=== PATIENT | female | born 1950 | race Two or more races ===

== ENCOUNTER 2017-09-24 13:12 | Outpatient (CLI) | payer OTHER ==
[~2017-09-24 13:12] MED LIST: CIPRO500 MG PO; LEVSIN/SL0.125 MG SL; NORVASC2.5 M1; NORVASC2.5 MG PO; ZOCOR20 MG PO
== END 2017-09-24 13:26 | disposition home or self-care (01) ==
LOC: LAB 13:12
DX: I11.9 Hypertensive heart disease without heart failure (principal); E78.2 Mixed hyperlipidemia; Z12.11 Encounter for screening for malignant neoplasm of colon

== ENCOUNTER → 2017-09-25 12:19 | Outpatient (CLI) | payer OTHER | END | disposition home or self-care (01) | LOC: LAB 12:19 | DX: I11.9 Hypertensive heart disease without heart failure (principal); E78.2 Mixed hyperlipidemia; Z11.1 Encounter for screening for respiratory tuberculosis ==

== ENCOUNTER 2017-10-19 12:14 | Outpatient (CLI) | payer OTHER | END 2017-10-19 14:34 | disposition home or self-care (01) | LOC: TOM 12:14 | DX: H81.393 Other peripheral vertigo, bilateral (principal) ==

== ENCOUNTER 2017-10-20 07:07 | Outpatient (CLI) | payer OTHER | END 2017-10-20 07:12 | disposition home or self-care (01) | LOC: LAB 07:07 | DX: E16.1 Other hypoglycemia (principal) ==

== ENCOUNTER 2017-12-09 10:45 | Outpatient (CLI) | payer OTHER | END 2017-12-09 10:50 | disposition home or self-care (01) | LOC: MAMO-SONO 10:45 | DX: Z12.31 Encounter for screening mammogram for malignant neoplasm of breast (principal); Z87.898 Personal history of other specified conditions ==

== ENCOUNTER 2017-12-09 10:56 | Outpatient (CLI) | payer OTHER | END 2017-12-09 10:58 | disposition home or self-care (01) | LOC: RAD 10:56 | DX: J30.89 Other allergic rhinitis (principal); E78.2 Mixed hyperlipidemia; K44.9 Diaphragmatic hernia without obstruction or gangrene; I10 Essential (primary) hypertension; K21.9 Gastro-esophageal reflux disease without esophagitis; J45.20 Mild intermittent asthma, uncomplicated ==

== ENCOUNTER → 2017-12-09 14:02 | Outpatient (CLI) | payer OTHER | END | disposition home or self-care (01) | LOC: LAB 14:02 | DX: E78.00 Pure hypercholesterolemia, unspecified (principal); K44.9 Diaphragmatic hernia without obstruction or gangrene; K21.9 Gastro-esophageal reflux disease without esophagitis; I10 Essential (primary) hypertension; J45.40 Moderate persistent asthma, uncomplicated; J30.89 Other allergic rhinitis ==

== ENCOUNTER 2017-12-11 11:09 | Outpatient (CLI) | payer OTHER | END 2017-12-11 11:16 | disposition home or self-care (01) | LOC: LAB 11:09 | DX: J30.9 Allergic rhinitis, unspecified (principal); E78.2 Mixed hyperlipidemia; K44.9 Diaphragmatic hernia without obstruction or gangrene; I10 Essential (primary) hypertension; K21.9 Gastro-esophageal reflux disease without esophagitis; J45.40 Moderate persistent asthma, uncomplicated; N39.0 Urinary tract infection, site not specified ==

== ENCOUNTER 2018-01-07 11:30 | Outpatient (CLI) | payer OTHER | END 2018-01-07 11:47 | disposition home or self-care (01) | LOC: LAB 11:30 | DX: R20.0 Anesthesia of skin (principal) ==

== ENCOUNTER 2018-01-07 12:48 | Outpatient (CLI) | payer OTHER | END 2018-01-07 12:55 | disposition home or self-care (01) | LOC: RAD 12:48 | DX: R20.2 Paresthesia of skin (principal); M54.5 Low back pain ==

== ENCOUNTER 2018-02-20 07:42 | Outpatient (CLI) | payer OTHER | END 2018-02-20 11:43 | disposition home or self-care (01) | LOC: LAB 07:42 | DX: D64.89 Other specified anemias (principal); E03.8 Other specified hypothyroidism; I10 Essential (primary) hypertension; R73.09 Other abnormal glucose; E78.4 Other hyperlipidemia ==

== ENCOUNTER 2018-02-23 08:45 | Outpatient (CLI) | payer OTHER | END 2018-02-23 08:52 | disposition home or self-care (01) | LOC: SONOGRAMA 08:45 | DX: Z13.228 Encounter for screening for other metabolic disorders (principal); E04.1 Nontoxic single thyroid nodule ==

== ENCOUNTER → 2018-02-23 | Outpatient (CLI) | payer OTHER | END | disposition home or self-care (01) | LOC: LAB 07:36 | DX: Z13.228 Encounter for screening for other metabolic disorders (principal); E55.9 Vitamin D deficiency, unspecified ==

== ENCOUNTER 2018-03-19 08:15 | Outpatient (CLI) | payer OTHER | END 2018-03-19 08:30 | disposition home or self-care (01) | LOC: LAB 08:15 | DX: R73.01 Impaired fasting glucose (principal) ==

== ENCOUNTER 2018-03-22 08:45 | Outpatient (CLI) | payer OTHER | END 2018-03-22 09:02 | disposition home or self-care (01) | LOC: NUCLEAR 08:45 | DX: I73.9 Peripheral vascular disease, unspecified (principal) ==

== ENCOUNTER → 2018-04-13 06:51 | Outpatient (CLI) | payer OTHER | END | disposition home or self-care (01) | LOC: LAB 06:51 | DX: E55.9 Vitamin D deficiency, unspecified (principal); D51.8 Other vitamin B12 deficiency anemias; E11.9 Type 2 diabetes mellitus without complications; E03.8 Other specified hypothyroidism; E53.8 Deficiency of other specified B group vitamins ==

== ENCOUNTER 2018-04-19 08:21 | Outpatient (CLI) | payer OTHER | END 2018-04-19 08:25 | disposition home or self-care (01) | LOC: MRI 08:21 | DX: R25.1 Tremor, unspecified (principal) | CPT/HCPCS: 70551 ==

== ENCOUNTER 2018-06-21 09:18 | Outpatient (CLI) | payer OTHER | END 2018-06-21 09:28 | disposition home or self-care (01) | LOC: LAB 09:18 | DX: E78.4 Other hyperlipidemia (principal); E03.8 Other specified hypothyroidism; I10 Essential (primary) hypertension ==

== ENCOUNTER 2018-07-01 08:40 | Outpatient (CLI) | payer OTHER | END 2018-07-01 08:43 | disposition home or self-care (01) | LOC: LAB 08:40 | DX: R30.0 Dysuria (principal) ==

== ENCOUNTER 2018-07-13 10:02 | Outpatient (CLI) | payer OTHER | END 2018-07-13 10:10 | disposition home or self-care (01) | LOC: SONOGRAMA 10:02 | DX: R10.2 Pelvic and perineal pain (principal) ==

== ENCOUNTER 2018-09-28 13:15 | Outpatient (CLI) | payer OTHER | END 2018-09-28 13:24 | disposition home or self-care (01) | LOC: RAD 13:15 | DX: J45.40 Moderate persistent asthma, uncomplicated (principal) ==

== ENCOUNTER 2018-10-30 07:58 | Outpatient (CLI) | payer OTHER | END 2018-10-30 07:59 | disposition home or self-care (01) | LOC: SONOGRAMA 07:58 → MAMO-SONO 08:45 | DX: R10.13 Epigastric pain (principal); N23 Unspecified renal colic ==

== ENCOUNTER 2018-11-16 10:48 | Outpatient (CLI) | payer OTHER | END 2018-11-16 13:05 | disposition HB | LOC: LAB 10:48 | DX: E03.8 Other specified hypothyroidism (principal); I10 Essential (primary) hypertension; E78.89 Other lipoprotein metabolism disorders ==

== ENCOUNTER 2018-12-10 08:45 | Outpatient (CLI) | payer OTHER | END 2018-12-10 09:22 | disposition home or self-care (01) | LOC: MAMO-SONO 08:45 | DX: Z12.31 Encounter for screening mammogram for malignant neoplasm of breast (principal); Z87.898 Personal history of other specified conditions; N64.89 Other specified disorders of breast ==

== ENCOUNTER 2018-12-23 13:47 | Outpatient (CLI) | payer OTHER | END 2018-12-23 13:57 | disposition home or self-care (01) | LOC: NUCLEAR 13:47 | DX: M81.0 Age-related osteoporosis without current pathological fracture (principal) ==

== ENCOUNTER 2018-12-23 14:35 | Outpatient (CLI) | payer OTHER | END 2018-12-23 14:46 | disposition home or self-care (01) | LOC: RAD 14:35 | DX: M54.2 Cervicalgia (principal); M54.5 Low back pain ==

== ENCOUNTER 2018-12-28 15:09 | Outpatient (CLI) | payer OTHER | END 2018-12-28 16:27 | disposition home or self-care (01) | LOC: LAB 15:09 | DX: R10.33 Periumbilical pain (principal); Z51.81 Encounter for therapeutic drug level monitoring ==

== ENCOUNTER 2019-01-05 07:21 | Outpatient (CLI) | payer OTHER | END 2019-01-05 07:27 | disposition home or self-care (01) | LOC: TOM 07:21 | DX: R10.31 Right lower quadrant pain (principal); R10.32 Left lower quadrant pain; R10.33 Periumbilical pain | CPT/HCPCS: 74178; Q9965 ==

== ENCOUNTER → 2019-06-06 | Outpatient (CLI) | payer OTHER | END | disposition home or self-care (01) | LOC: RAD 11:10 | DX: M54.5 Low back pain (principal) ==

== ENCOUNTER 2019-08-03 11:55 | Outpatient (CLI) | payer OTHER | END 2019-08-03 11:58 | disposition home or self-care (01) | LOC: LAB 11:55 | DX: E03.8 Other specified hypothyroidism (principal) ==

== ENCOUNTER 2019-08-11 08:05 | Outpatient (CLI) | payer OTHER | END 2019-08-11 09:00 | disposition home or self-care (01) | LOC: NUCLEAR 08:05 | DX: E04.1 Nontoxic single thyroid nodule (principal) | CPT/HCPCS: 78013; A9512 ==

== ENCOUNTER 2019-08-24 08:09 | Outpatient (CLI) | payer OTHER | END 2019-08-24 08:40 | disposition home or self-care (01) | LOC: LAB 08:09 | DX: D51.0 Vitamin B12 deficiency anemia due to intrinsic factor deficiency (principal); E78.49 Other hyperlipidemia; E08.22 Diabetes mellitus due to underlying condition with diabetic chronic kidney disease; N20.1 Calculus of ureter; N20.0 Calculus of kidney; I10 Essential (primary) hypertension; N28.1 Cyst of kidney, acquired ==

== ENCOUNTER 2019-08-29 09:18 | Outpatient (CLI) | payer OTHER | END 2019-08-29 12:41 | disposition home or self-care (01) | LOC: TOM 09:18 | DX: N20.1 Calculus of ureter (principal); N20.0 Calculus of kidney; N28.1 Cyst of kidney, acquired ==

== ENCOUNTER 2019-11-16 09:10 | Outpatient (CLI) | payer OTHER | END 2019-11-16 09:16 | disposition home or self-care (01) | LOC: SONOGRAMA 09:10 → MAMO-SONO 10:15 | DX: E04.1 Nontoxic single thyroid nodule (principal) ==

== ENCOUNTER 2019-11-17 06:52 | Outpatient (CLI) | payer OTHER | END 2019-11-17 06:57 | disposition home or self-care (01) | LOC: LAB 06:52 | DX: E11.65 Type 2 diabetes mellitus with hyperglycemia (principal); I10 Essential (primary) hypertension; E03.8 Other specified hypothyroidism; D50.8 Other iron deficiency anemias ==

== ENCOUNTER 2020-01-09 08:47 | Outpatient (CLI) | payer OTHER | END 2020-01-09 09:45 | disposition home or self-care (01) | LOC: RAD 08:47 | DX: M54.5 Low back pain (principal); M54.10 Radiculopathy, site unspecified; M54.2 Cervicalgia; R05 Cough; R53.81 Other malaise; I11.9 Hypertensive heart disease without heart failure; Q05.7 Lumbar spina bifida without hydrocephalus; M51.36 Other intervertebral disc degeneration, lumbar region; E78.01 Familial hypercholesterolemia; E55.9 Vitamin D deficiency, unspecified; J45.20 Mild intermittent asthma, uncomplicated; M48.56XS Collapsed vertebra, not elsewhere classified, lumbar region, sequela of fracture; K58.0 Irritable bowel syndrome with diarrhea; N60.21 Fibroadenosis of right breast; Z12.31 Encounter for screening mammogram for malignant neoplasm of breast | CPT/HCPCS: 71046; 72141; 72158; 76641; 77067; A9575; 72148 ==

== ENCOUNTER 2020-01-18 09:28 | Outpatient (CLI) | payer OTHER | END 2020-01-18 09:36 | disposition home or self-care (01) | LOC: LAB 09:28 | DX: C77.2 Secondary and unspecified malignant neoplasm of intra-abdominal lymph nodes (principal); C26.9 Malignant neoplasm of ill-defined sites within the digestive system; R10.817 Generalized abdominal tenderness; C56.9 Malignant neoplasm of unspecified ovary; E55.0 Rickets, active ==

== ENCOUNTER → 2020-02-22 08:00 | Outpatient (CLI) | payer OTHER | END | disposition home or self-care (01) | LOC: LAB 02-21 10:14 | PROVIDERS: ATTEND Internal Medicine Cardiovascular Disease | DX: E78.89 Other lipoprotein metabolism disorders (principal); I10 Essential (primary) hypertension; D64.89 Other specified anemias; E03.8 Other specified hypothyroidism ==

== ENCOUNTER 2020-04-10 09:27 | Outpatient (CLI) | payer OTHER | END 2020-04-10 09:35 | disposition home or self-care (01) | LOC: LAB 09:27 | PROVIDERS: ATTEND Psychiatry & Neurology Pain Medicine | DX: D68.8 Other specified coagulation defects (principal); H81.399 Other peripheral vertigo, unspecified ear; Z01.812 Encounter for preprocedural laboratory examination; Z13.6 Encounter for screening for cardiovascular disorders; E78.00 Pure hypercholesterolemia, unspecified ==

== ENCOUNTER 2020-06-08 11:35 | Outpatient (CLI) | payer OTHER | END 2020-06-08 11:37 | disposition home or self-care (01) | LOC: RAD 11:35 | PROVIDERS: ATTEND Internal Medicine Pulmonary Disease | DX: J45.40 Moderate persistent asthma, uncomplicated (principal) ==

== ENCOUNTER → 2020-08-07 08:22 | Outpatient (CLI) | payer OTHER | END | disposition home or self-care (01) | LOC: LAB 08:22 | PROVIDERS: ATTEND Internal Medicine Cardiovascular Disease | DX: E03.8 Other specified hypothyroidism (principal); E78.49 Other hyperlipidemia; I10 Essential (primary) hypertension; D64.89 Other specified anemias ==

== ENCOUNTER → 2020-08-15 | Outpatient (CLI) | payer OTHER | END | disposition home or self-care (01) | LOC: MRI 09:20 | DX: M48.07 Spinal stenosis, lumbosacral region (principal); M54.5 Low back pain; M51.36 Other intervertebral disc degeneration, lumbar region; G95.89 Other specified diseases of spinal cord | CPT/HCPCS: 72141; 72148 ==

== ENCOUNTER 2020-11-20 09:58 | Outpatient (CLI) | payer OTHER | END 2020-11-20 10:12 | disposition home or self-care (01) | LOC: LAB 09:58 | PROVIDERS: ATTEND Internal Medicine | DX: I11.9 Hypertensive heart disease without heart failure (principal); E03.8 Other specified hypothyroidism; Q05.7 Lumbar spina bifida without hydrocephalus; E78.01 Familial hypercholesterolemia; G60.8 Other hereditary and idiopathic neuropathies; E55.9 Vitamin D deficiency, unspecified; G56.03 Carpal tunnel syndrome, bilateral upper limbs; J45.20 Mild intermittent asthma, uncomplicated; M48.56XS Collapsed vertebra, not elsewhere classified, lumbar region, sequela of fracture; K58.0 Irritable bowel syndrome with diarrhea; N60.21 Fibroadenosis of right breast ==

== ENCOUNTER 2020-11-27 13:05 | Outpatient (CLI) | payer OTHER | END 2020-11-27 13:15 | disposition home or self-care (01) | LOC: SONOGRAMA 13:05 → MAMO-SONO 13:15 | DX: E04.8 Other specified nontoxic goiter (principal); I11.9 Hypertensive heart disease without heart failure; E03.8 Other specified hypothyroidism; Q05.7 Lumbar spina bifida without hydrocephalus; M51.36 Other intervertebral disc degeneration, lumbar region; E78.01 Familial hypercholesterolemia; G60.8 Other hereditary and idiopathic neuropathies; E55.9 Vitamin D deficiency, unspecified; G56.03 Carpal tunnel syndrome, bilateral upper limbs; J45.20 Mild intermittent asthma, uncomplicated; M48.56XS Collapsed vertebra, not elsewhere classified, lumbar region, sequela of fracture; K58.0 Irritable bowel syndrome with diarrhea; N60.21 Fibroadenosis of right breast ==

== ENCOUNTER 2020-12-24 08:13 | Outpatient (CLI) | payer OTHER | END 2020-12-24 08:16 | disposition home or self-care (01) | LOC: LAB 08:13 | DX: E78.5 Hyperlipidemia, unspecified (principal); E03.9 Hypothyroidism, unspecified; I11.9 Hypertensive heart disease without heart failure ==

== ENCOUNTER 2021-06-11 09:58 | Outpatient (CLI) | payer OTHER | END 2021-06-11 10:07 | disposition home or self-care (01) | LOC: RAD 09:58 | DX: M25.551 Pain in right hip (principal); M25.552 Pain in left hip; M41.87 Other forms of scoliosis, lumbosacral region; M21.70 Unequal limb length (acquired), unspecified site ==

== ENCOUNTER → 2021-07-10 12:50 | Outpatient (CLI) | payer OTHER | END | disposition home or self-care (01) | LOC: NUCLEAR 12:50 | PROVIDERS: ATTEND Obstetrics & Gynecology | DX: M81.0 Age-related osteoporosis without current pathological fracture (principal) ==

== ENCOUNTER → 2021-07-10 | Outpatient (CLI) | payer OTHER | END | disposition home or self-care (01) | LOC: MAMO-SONO 11:47 | DX: N60.32 Fibrosclerosis of left breast (principal); N64.89 Other specified disorders of breast; Z12.31 Encounter for screening mammogram for malignant neoplasm of breast ==

== ENCOUNTER 2021-10-18 10:54 | Outpatient (CLI) | payer OTHER | END 2021-10-18 10:55 | disposition home or self-care (01) | LOC: LAB 10:54 | PROVIDERS: ATTEND Internal Medicine Cardiovascular Disease | DX: D64.89 Other specified anemias (principal); E78.89 Other lipoprotein metabolism disorders; E03.8 Other specified hypothyroidism ==

== ENCOUNTER 2021-11-07 12:02 | Outpatient (CLI) | payer OTHER | END 2021-11-07 12:03 | disposition home or self-care (01) | LOC: LAB 12:02 | PROVIDERS: ATTEND Radiology Diagnostic Radiology | DX: R41.3 Other amnesia (principal) ==

== ENCOUNTER → 2021-11-20 08:43 | Outpatient (CLI) | payer OTHER | END | disposition home or self-care (01) | LOC: LAB 08:43 | PROVIDERS: ATTEND Psychiatry & Neurology Pain Medicine | DX: R41.3 Other amnesia (principal); E53.8 Deficiency of other specified B group vitamins; E55.9 Vitamin D deficiency, unspecified; A53.9 Syphilis, unspecified; E07.9 Disorder of thyroid, unspecified ==

== ENCOUNTER 2022-02-12 08:56 | Outpatient (CLI) | payer OTHER | END 2022-02-12 09:08 | disposition home or self-care (01) | LOC: RAD 08:56 | PROVIDERS: ATTEND Psychiatry & Neurology Pain Medicine | DX: J30.9 Allergic rhinitis, unspecified (principal); I10 Essential (primary) hypertension; K21.9 Gastro-esophageal reflux disease without esophagitis; J42 Unspecified chronic bronchitis; I73.9 Peripheral vascular disease, unspecified; J45.40 Moderate persistent asthma, uncomplicated; K44.9 Diaphragmatic hernia without obstruction or gangrene; G31.84 Mild cognitive impairment of uncertain or unknown etiology; R42 Dizziness and giddiness; R25.1 Tremor, unspecified | CPT/HCPCS: 70553; 71046; Q9965 ==

== ENCOUNTER 2022-02-12 09:34 | Outpatient (CLI) | payer OTHER | END 2022-02-12 09:38 | disposition home or self-care (01) | LOC: LAB 09:34 | PROVIDERS: ATTEND Radiology Diagnostic Radiology | DX: R41.3 Other amnesia (principal) ==

== ENCOUNTER 2022-04-21 09:15 | Outpatient (CLI) | payer OTHER | END 2022-04-21 09:16 | disposition home or self-care (01) | LOC: LAB 09:15 | PROVIDERS: ATTEND Obstetrics & Gynecology | DX: D50.0 Iron deficiency anemia secondary to blood loss (chronic) (principal); N39.0 Urinary tract infection, site not specified; N76.0 Acute vaginitis; E11.69 Type 2 diabetes mellitus with other specified complication; E55.9 Vitamin D deficiency, unspecified; D64.9 Anemia, unspecified; E78.5 Hyperlipidemia, unspecified; E03.9 Hypothyroidism, unspecified; I10 Essential (primary) hypertension ==

== ENCOUNTER 2022-08-18 09:15 | Outpatient (CLI) | payer OTHER | END 2022-08-18 15:50 | disposition home or self-care (01) | LOC: LAB 09:15 | PROVIDERS: ATTEND Obstetrics & Gynecology | DX: Z01.419 Encounter for gynecological examination (general) (routine) without abnormal findings (principal); E78.5 Hyperlipidemia, unspecified; E55.9 Vitamin D deficiency, unspecified; E78.2 Mixed hyperlipidemia; D64.9 Anemia, unspecified; E03.9 Hypothyroidism, unspecified; E78.00 Pure hypercholesterolemia, unspecified; N39.0 Urinary tract infection, site not specified ==

== ENCOUNTER 2022-08-25 14:32 | Outpatient (CLI) | payer OTHER | END 2022-08-25 14:37 | disposition home or self-care (01) | LOC: EDBD 14:32 → RAD 14:32 | PROVIDERS: ATTEND Internal Medicine | DX: M99.03 Segmental and somatic dysfunction of lumbar region (principal); M54.50 Low back pain, unspecified ==

== ENCOUNTER 2022-12-05 09:36 | Outpatient (CLI) | payer OTHER | END 2022-12-05 09:57 | disposition home or self-care (01) | LOC: LAB 09:36 | DX: I11.9 Hypertensive heart disease without heart failure (principal); E03.9 Hypothyroidism, unspecified; E78.1 Pure hyperglyceridemia; R73.01 Impaired fasting glucose ==

== ENCOUNTER → 2022-12-16 | Outpatient (CLI) | payer OTHER | END | disposition home or self-care (01) | LOC: RAD 13:25 | DX: M25.50 Pain in unspecified joint (principal); M94.0 Chondrocostal junction syndrome [Tietze]; R25.2 Cramp and spasm; R06.02 Shortness of breath ==

== ENCOUNTER 2023-03-03 11:31 | Outpatient (CLI) | payer OTHER | END 2023-03-03 11:35 | disposition home or self-care (01) | LOC: LAB 11:31 | PROVIDERS: ATTEND Internal Medicine | DX: Z12.11 Encounter for screening for malignant neoplasm of colon (principal); I11.9 Hypertensive heart disease without heart failure ==

== ENCOUNTER 2023-03-05 12:14 | Outpatient (CLI) | payer OTHER | END 2023-03-05 12:15 | disposition home or self-care (01) | LOC: LAB 12:14 | PROVIDERS: ATTEND Internal Medicine | DX: Z12.11 Encounter for screening for malignant neoplasm of colon (principal) ==

== ENCOUNTER 2023-03-20 12:45 | Outpatient (CLI) | payer OTHER | END 2023-03-20 12:46 | disposition home or self-care (01) | LOC: LAB 12:45 | PROVIDERS: ATTEND Internal Medicine | DX: J44.9 Chronic obstructive pulmonary disease, unspecified (principal); J45.40 Moderate persistent asthma, uncomplicated; M85.9 Disorder of bone density and structure, unspecified; G89.29 Other chronic pain; I73.9 Peripheral vascular disease, unspecified; E78.01 Familial hypercholesterolemia; K63.5 Polyp of colon ==

== ENCOUNTER 2023-05-08 11:05 | Outpatient (CLI) | payer OTHER | END 2023-05-08 11:11 | disposition home or self-care (01) | LOC: MRI 11:05 | PROVIDERS: ATTEND Chiropractor | DX: M99.01 Segmental and somatic dysfunction of cervical region (principal) | CPT/HCPCS: 72141 ==

== ENCOUNTER 2023-05-11 09:15 | Outpatient (CLI) | payer OTHER | END 2023-05-11 09:17 | disposition home or self-care (01) | LOC: LAB 09:15 | DX: N39.0 Urinary tract infection, site not specified (principal) ==

== ENCOUNTER → 2023-08-31 07:07 | Outpatient (CLI) | payer OTHER ==
[2023-08-31 10:04] LABS: T4 FREE 0.76 NG/ML (0.76-1.46); TSH 2.13 uIU/mL (0.358-3.74)
[2023-08-31 10:11] LABS: ob NEGATIVE (NEGATIVE)
== END | disposition home or self-care (01) ==
LOC: LAB 07:07
PROVIDERS: ATTEND Obstetrics & Gynecology
DX: E55.9 Vitamin D deficiency, unspecified (principal); E78.2 Mixed hyperlipidemia; E03.9 Hypothyroidism, unspecified; Z12.11 Encounter for screening for malignant neoplasm of colon

== ENCOUNTER 2024-04-07 09:18 | Outpatient (CLI) | payer OTHER | END 2024-04-07 09:26 | disposition home or self-care (01) | LOC: TOM 09:18 | PROVIDERS: ATTEND Internal Medicine | DX: N18.2 Chronic kidney disease, stage 2 (mild) (principal); R10.83 Colic; M54.41 Lumbago with sciatica, right side; M54.42 Lumbago with sciatica, left side ==

== ENCOUNTER 2024-04-07 11:12 | Outpatient (CLI) | payer OTHER ==
[2024-04-07 12:16] LABS: BILIRUBIN TOTAL 0.49 mg/dL (0.3-1.2); CREATININE SERUM 0.89 mg/dL (0.55-1.02); GFR 62.52; GLOBULINA 3.4 G/DL (2.4-3.5); POTASSIUM 4.69 mEq/L (3.5-5.1); TOTAL PROTEIN 7.4 gm/dL (6.4-8.2)
== END 2024-04-07 11:16 | disposition home or self-care (01) ==
LOC: LAB 11:12
PROVIDERS: ATTEND Internal Medicine
DX: N18.2 Chronic kidney disease, stage 2 (mild) (principal); I11.9 Hypertensive heart disease without heart failure

== ENCOUNTER 2024-07-12 08:34 | Outpatient (CLI) | payer OTHER ==
[2024-07-12 09:32] LABS: HEMATOCRIT 41.5 % (36.0-45.00); HEMOGLOBIN 13.9 g/dL (12.0-15.00); MEAN CORPUSCULAR HEMOGLOBIN 32.1 pg (27.00-32.0); MEAN CORPUSCULAR HGB CONC 33.4 g/dl (32.0-36.0); PLATELET COUNT 191 K/uL (150-450); RED BLOOD COUNT 4.33 M/uL (4.00-6.00); RED CELL DISTRIBUTION WIDTH 13.9 % (11.5-14.5)
[2024-07-12 09:41] LABS: PH,URINE 7.5 (5.0-8.0); URINE APPEARANCE Clear; URINE BILIRRUBIN Negative (NEGATIVE); URINE BLOOD Negative; URINE COLOR Yellow; URINE GLUCOSE Negative (NEGATIVE); URINE KETONE Negative (NEGATIVE); URINE LEUKOCYTE Trace; URINE NITRATE Negative; URINE PROTEIN Negative (NEGATIVE); URINE UROBILINOGEN 0.2 E.U./dl
[2024-07-12 09:42] LABS: URINE BACTERIA 18.8 uL (0.0-1933); URINE RBC 6.1 uL (0.0-20.8); URINE WBC 2.9 uL (0.0-23.2)
[2024-07-12 10:01] LABS: ALBUMIN 3.6 gm/dL (3.4-5.0); BILIRUBIN TOTAL 0.5 mg/dL (0.3-1.2); CALCIUM 8.9 mg/dL (8.5-10.1); CHOL HDL RATIO 2.6 (0-5.0); CREATININE SERUM 0.85 mg/dL (0.55-1.02); GFR 65.93; GLOBULINA 3.1 G/DL (2.4-3.5); POTASSIUM 4.26 mEq/L (3.5-5.1); T4 TOTAL 6.14 UG/DL (4.8-13.9); TOTAL PROTEIN 6.7 gm/dL (6.4-8.2); TSH 1.32 uIU/mL (0.358-3.74)
[2024-07-12 10:18] LABS: URINE EPITHELIAL CELLS 0.9 uL (0.0-38.8)
[2024-07-12 10:43] LABS: FOLIC ACID > 20.00 ng/ml (4.78-20)
[2024-07-15 13:06] LABS: a:g ratio 1.3 (0.7-1.7); alpha 1 g 0.2 g/dL (0.0-0.4); alpha 2 0.6 g/dL (0.4-1.0); globulin t 2.8 g/dL (2.2-3.9); m spike Not Observed g/dL (Not Observed); prot total 6.5 g/dL (6.0-8.5)
== END 2024-07-12 08:35 | disposition home or self-care (01) ==
LOC: LAB 08:34
PROVIDERS: ATTEND Psychiatry & Neurology Pain Medicine
DX: G62.9 Polyneuropathy, unspecified (principal); E53.8 Deficiency of other specified B group vitamins; E55.9 Vitamin D deficiency, unspecified; A53.9 Syphilis, unspecified; E07.9 Disorder of thyroid, unspecified; E78.9 Disorder of lipoprotein metabolism, unspecified; L93.0 Discoid lupus erythematosus; N89.8 Other specified noninflammatory disorders of vagina; R35.0 Frequency of micturition

== ENCOUNTER 2024-07-12 13:04 | Outpatient (CLI) | payer OTHER | END 2024-07-12 13:09 | disposition home or self-care (01) | LOC: MAMO-SONO 13:04 | PROVIDERS: ATTEND Internal Medicine | DX: N60.21 Fibroadenosis of right breast (principal); N60.22 Fibroadenosis of left breast; Z12.31 Encounter for screening mammogram for malignant neoplasm of breast ==

== ENCOUNTER → 2024-10-14 12:06 | Outpatient (CLI) | payer OTHER ==
[2024-10-14 13:12] LABS: HEMATOCRIT 42.2 % (36.0-45.00); HEMOGLOBIN 13.7 g/dL (12.0-15.00); MEAN CELL VOLUME 97.2 fL (80.00-100.00); MEAN CORPUSCULAR HEMOGLOBIN 31.6 pg (27.00-32.0); MEAN CORPUSCULAR HGB CONC 32.5 g/dl (32.0-36.0); PLATELET COUNT 214 K/uL (150-450); RED BLOOD COUNT 4.34 M/uL (4.00-6.00); RED CELL DISTRIBUTION WIDTH 14.9 % (11.5-14.5)
[2024-10-14 13:46] LABS: PH,URINE 7.5 (5.0-8.0); URINE APPEARANCE Clear; URINE BILIRRUBIN Negative (NEGATIVE); URINE BLOOD Negative; URINE COLOR Yellow; URINE GLUCOSE Negative (NEGATIVE); URINE KETONE Negative (NEGATIVE); URINE LEUKOCYTE Trace; URINE NITRATE Negative; URINE PROTEIN Negative (NEGATIVE); URINE UROBILINOGEN 0.2 E.U./dl
[2024-10-14 13:48] LABS: URINE BACTERIA 24.4 uL (0.0-1933); URINE RBC 3.3 uL (0.0-20.8)
[2024-10-14 13:54] LABS: URINE CAST 0.29 uL (0.0-1.40); URINE EPITHELIAL CELLS 0.9 uL (0.0-38.8); URINE WBC 1.2 uL (0.0-23.2)
[2024-10-14 14:38] LABS: ALBUMIN 3.8 gm/dL (3.4-5.0); BILIRUBIN TOTAL 0.56 mg/dL (0.3-1.2); CALCIUM 9.3 mg/dL (8.5-10.1); CHOL HDL RATIO 2.4 (0-5.0); CREATININE SERUM 0.84 mg/dL (0.55-1.02); GFR 66.65; GLOBULINA 3.1 G/DL (2.4-3.5); POTASSIUM 4.21 mEq/L (3.5-5.1); TOTAL PROTEIN 6.9 gm/dL (6.4-8.2); TSH 1.31 uIU/mL (0.358-3.74)
== END | disposition home or self-care (01) ==
LOC: LAB 12:06
PROVIDERS: ATTEND Internal Medicine Cardiovascular Disease
DX: D64.9 Anemia, unspecified (principal); E78.5 Hyperlipidemia, unspecified; E03.9 Hypothyroidism, unspecified; I10 Essential (primary) hypertension; R73.01 Impaired fasting glucose; E55.9 Vitamin D deficiency, unspecified; N39.0 Urinary tract infection, site not specified

== ENCOUNTER 2024-11-03 08:10 | Outpatient (CLI) | payer OTHER ==
[2024-11-03 08:48] LABS: HEMATOCRIT 43.8 % (36.0-45.00); HEMOGLOBIN 14.3 g/dL (12.0-15.00); MEAN CELL VOLUME 97.2 fL (80.00-100.00); MEAN CORPUSCULAR HEMOGLOBIN 31.8 pg (27.00-32.0); MEAN CORPUSCULAR HGB CONC 32.7 g/dl (32.0-36.0); PLATELET COUNT 205 K/uL (150-450); RED CELL DISTRIBUTION WIDTH 14.5 % (11.5-14.5)
[2024-11-03 08:59] LABS: PARTIAL THROMBOPLASTIN TIME 26.8 SECONDS (22.0-34.0); PROTHROMBIN TIME 10.9 SECONDS (9.0-11.5)
[2024-11-03 09:53] LABS: ALBUMIN 3.8 gm/dL (3.4-5.0); BILIRUBIN TOTAL 0.39 mg/dL (0.3-1.2); CALCIUM 9.7 mg/dL (8.5-10.1); CREATININE SERUM 0.83 mg/dL (0.55-1.02); GFR 67.57; GLOBULINA 3.3 G/DL (2.4-3.5); POTASSIUM 4.29 mEq/L (3.5-5.1); TOTAL PROTEIN 7.1 gm/dL (6.4-8.2)
== END 2024-11-03 08:11 | disposition home or self-care (01) ==
LOC: LAB 08:10
PROVIDERS: ATTEND Ophthalmology
DX: E78.2 Mixed hyperlipidemia (principal); D68.8 Other specified coagulation defects

== ENCOUNTER 2025-02-01 11:22 | Outpatient (CLI) | payer OTHER ==
[2025-02-01 12:01] LABS: BASO % 0.5 % (0.1-1.2); EOS # 0.22 (0.04-0.54); EOS % 2.9 % (0.7-7.0); HEMATOCRIT 42.9 % (34.1-44.9); HEMOGLOBIN 13.9 g/dL (11.2-15.7); LYMPH # 3.17 (1.18-3.74); LYMPH % 41.4 % (19.3-53.1); MEAN CORPUSCULAR HEMOGLOBIN 30.7 pg (25.6-32.2); MONO # 0.41 (0.24-0.82); MONO % 5.4 % (4.7-12.5); NEUT # 3.81 (1.56-6.13); NEUT % 49.7 % (34.0-71.1); PLATELET COUNT 205 K/uL (163-369); RED BLOOD COUNT 4.53 M/uL (3.93-5.22); RED CELL DISTRIBUTION WIDTH 13.6 % (11.6-14.4)
[2025-02-01 12:41] LABS: PH,URINE 5.5 (5.0-8.0); URINE APPEARANCE Clear; URINE BILIRRUBIN Negative (NEGATIVE); URINE BLOOD Negative; URINE COLOR Yellow; URINE GLUCOSE Negative (NEGATIVE); URINE KETONE Negative (NEGATIVE); URINE LEUKOCYTE Small; URINE NITRATE Negative; URINE PROTEIN Negative (NEGATIVE); URINE UROBILINOGEN 0.2 E.U./dl
[2025-02-01 12:44] LABS: URINE EPITHELIAL CELLS 2.8 uL (0.0-38.8); URINE RBC 2.5 uL (0.0-20.8); URINE WBC 5.8 uL (0.0-23.2)
[2025-02-01 13:10] LABS: ALBUMIN 3.7 gm/dL (3.4-5.0); BILIRUBIN TOTAL 0.37 mg/dL (0.3-1.2); CALCIUM 8.8 mg/dL (8.5-10.1); CREATININE SERUM 0.9 mg/dL (0.55-1.02); GFR 61.55; POTASSIUM 4.5 mEq/L (3.5-5.1); TOTAL PROTEIN 6.7 gm/dL (6.4-8.2)
[2025-02-01 13:20] LABS: URINE BACTERIA 3.6 uL (0.0-1933)
== END 2025-02-01 11:23 | disposition home or self-care (01) ==
LOC: LAB 11:22
PROVIDERS: ATTEND Internal Medicine
DX: N18.2 Chronic kidney disease, stage 2 (mild) (principal); I11.9 Hypertensive heart disease without heart failure

== ENCOUNTER 2025-02-01 13:57 | Outpatient (CLI) | payer OTHER | END 2025-02-01 14:03 | disposition home or self-care (01) | LOC: MRI 13:57 | PROVIDERS: ATTEND Psychiatry & Neurology Pain Medicine | DX: M54.2 Cervicalgia (principal); M54.10 Radiculopathy, site unspecified; M48.02 Spinal stenosis, cervical region | CPT/HCPCS: 72141 ==

== ENCOUNTER 2025-04-07 12:57 | Outpatient (CLI) | payer OTHER | END 2025-04-07 13:03 | disposition home or self-care (01) | LOC: SONOGRAMA 12:57 | PROVIDERS: ATTEND Internal Medicine | DX: E03.1 Congenital hypothyroidism without goiter (principal) ==

== ENCOUNTER → 2025-06-05 07:44 | Outpatient (CLI) | payer OTHER ==
[2025-06-05 08:54] LABS: URINE APPEARANCE Clear; URINE BILIRRUBIN Negative (NEGATIVE); URINE BLOOD Negative; URINE COLOR Yellow; URINE GLUCOSE Negative (NEGATIVE); URINE KETONE Negative (NEGATIVE); URINE LEUKOCYTE Negative; URINE NITRATE Negative; URINE PROTEIN Negative (NEGATIVE); URINE UROBILINOGEN 0.2 E.U./dl
[2025-06-05 08:58] LABS: URINE BACTERIA 8.3 uL (0.0-1933); URINE RBC 2.0 uL (0.0-20.8)
[2025-06-05 09:04] LABS: URINE CAST 0.00 uL (0.0-1.40); URINE EPITHELIAL CELLS 1.0 uL (0.0-38.8); URINE WBC 0.7 uL (0.0-23.2)
[2025-06-05 09:25] LABS: ALT/SGPT 40.0 U/L (12-78); AST/SGOT 24.0 U/L (15-37); BILIRUBIN TOTAL 0.45 mg/dL (0.3-1.2); BUN CREA RATIO 14.0 (7.0-25.0); CHOL HDL RATIO 2.4 (0-5.0); CREATININE SERUM 0.7 mg/dL (0.55-1.02); GFR 82.25; GLOBULINA 3.1 G/DL (2.4-3.5); GLUCOSE FASTING 83.0 mg/dL (65-100); HDL 90.0 mg/dl (40-60); LDL 111.0 mg/dl (0-130); OSMOLALITY SERUM 279.0 MOSM/KG (275-295); TSH 1.48 uIU/mL (0.358-3.74); VLDL 18.0 (0-39)
== END | disposition home or self-care (01) ==
LOC: LAB 07:44
PROVIDERS: ATTEND Internal Medicine
DX: E78.01 Familial hypercholesterolemia (principal); E03.1 Congenital hypothyroidism without goiter

== ENCOUNTER 2025-06-27 12:50 | Outpatient (CLI) | payer OTHER | END 2025-06-27 12:59 | disposition home or self-care (01) | LOC: TOM 12:50 | DX: M48.02 Spinal stenosis, cervical region (principal); M50.023 Cervical disc disorder at C6-C7 level with myelopathy; M50.122 Cervical disc disorder at C5-C6 level with radiculopathy; M50.121 Cervical disc disorder at C4-C5 level with radiculopathy; M50.11 Cervical disc disorder with radiculopathy, high cervical region; M47.12 Other spondylosis with myelopathy, cervical region; M99.71 Connective tissue and disc stenosis of intervertebral foramina of cervical region; M62.838 Other muscle spasm; R29.6 Repeated falls; R27.0 Ataxia, unspecified ==

== ENCOUNTER 2025-07-08 09:09 | Outpatient (CLI) | payer OTHER ==
[2025-07-08 11:11] LABS: BASO % 0.4 % (0.1-1.2); EOS # 0.20 (0.04-0.54); EOS % 2.8 % (0.7-7.0); LYMPH # 2.84 (1.18-3.74); LYMPH % 40.5 % (19.3-53.1); MEAN PLATELET VOLUME 10.20 fl (9.4-12.4); MONO # 0.44 (0.24-0.82); MONO % 6.3 % (4.7-12.5); NEUT # 3.50 (1.56-6.13); NEUT % 49.9 % (34.0-71.1); RED CELL DISTRIBUTION WIDTH 13.9 % (11.6-14.4); URINE APPEARANCE Clear; URINE BILIRRUBIN Negative (NEGATIVE); URINE BLOOD Negative; URINE COLOR Yellow; URINE GLUCOSE Negative (NEGATIVE); URINE KETONE Negative (NEGATIVE); URINE LEUKOCYTE Trace; URINE NITRATE Negative; URINE PROTEIN Negative (NEGATIVE); URINE UROBILINOGEN 0.2 E.U./dl
[2025-07-08 11:16] LABS: URINE BACTERIA 19.2 uL (0.0-1933); URINE RBC 3.8 uL (0.0-20.8); URINE WBC 6.5 uL (0.0-23.2)
[2025-07-08 11:26] LABS: URINE CAST 0.00 uL (0.0-1.40); URINE EPITHELIAL CELLS 1.2 uL (0.0-38.8)
[2025-07-08 11:55] LABS: ALT/SGPT 46.0 U/L (12-78); AST/SGOT 25.0 U/L (15-37); BILIRUBIN TOTAL 0.45 mg/dL (0.3-1.2); BUN CREA RATIO 16.0 (7.0-25.0); CHOL HDL RATIO 2.4 (0-5.0); CREATININE SERUM 0.85 mg/dL (0.55-1.02); GFR 65.74; GLOBULINA 2.9 G/DL (2.4-3.5); GLUCOSE FASTING 87.0 mg/dL (65-100); HDL 99.0 mg/dl (40-60); LDL 119.0 mg/dl (0-130); OSMOLALITY SERUM 283.0 MOSM/KG (275-295); T4 FREE 0.79 NG/ML (0.76-1.46); TSH 1.36 uIU/mL (0.358-3.74); VLDL 15.0 (0-39)
== END 2025-07-08 09:15 | disposition home or self-care (01) ==
LOC: LAB 09:09
PROVIDERS: ATTEND Internal Medicine Cardiovascular Disease
DX: D64.9 Anemia, unspecified (principal); I10 Essential (primary) hypertension; E11.9 Type 2 diabetes mellitus without complications; K76.0 Fatty (change of) liver, not elsewhere classified; E78.5 Hyperlipidemia, unspecified; E03.9 Hypothyroidism, unspecified; I12.9 Hypertensive chronic kidney disease with stage 1 through stage 4 chronic kidney disease, or unspecified chronic kidney disease

== ENCOUNTER 2025-08-24 08:31 | Outpatient (CLI) | payer OTHER | END 2025-08-24 08:35 | disposition home or self-care (01) | LOC: RAD 08:31 | PROVIDERS: ATTEND Neurological Surgery | DX: M48.02 Spinal stenosis, cervical region (principal); M47.12 Other spondylosis with myelopathy, cervical region; M99.71 Connective tissue and disc stenosis of intervertebral foramina of cervical region; M54.2 Cervicalgia; R29.6 Repeated falls; M62.838 Other muscle spasm ==